=== PATIENT | male | born 1945 | race African-American/Black ===

== ENCOUNTER 2018-03-15 20:41 | Emergency (ER) | payer MEDICARE ==
[~2018-03-15] VITALS: Ht 182.9 cm; Wt 95.3 kg
[2018-03-15 20:52] VITALS: Ht 182.9 cm; Wt 95.3 kg
[2018-03-15] MEDS ORDERED: PRAVACHOL20 MG (20:53)
[2018-03-15] MEDS ORDERED: NORVASC5 MG (20:54)
[2018-03-15] MEDS ORDERED: PRINIVIL10 MG (20:54)
[2018-03-15] MEDS ORDERED: NORCO 10-325 TA1 TAB PO (22:59)
[2018-03-15] MEDS ORDERED: DOXYCYCLINE HY100 M2 PO (23:00)
[2018-03-15 23:40] VITALS: BP 112/76
== END 2018-03-15 23:40 | disposition home or self-care (01) ==
LOC: D.ER 20:41
DX: S62.631B Displaced fracture of distal phalanx of left index finger, initial encounter for open fracture (principal); W23.0XXA Caught, crushed, jammed, or pinched between moving objects, initial encounter; Y93.89 Activity, other specified; Y92.89 Other specified places as the place of occurrence of the external cause; I10 Essential (primary) hypertension; F17.200 Nicotine dependence, unspecified, uncomplicated

== ENCOUNTER → 2018-03-29 15:57 | Outpatient (CLI) | payer MEDICARE ==
[~2018-03-29 15:57] MED LIST: DOXYCYCLINE HY100 M2 PO; NORCO 10-325 TA1 TAB PO; NORVASC5 MG; PRAVACHOL20 MG; PRINIVIL10 MG
== END | disposition home or self-care (01) ==
LOC: D.LABREF 15:57
DX: S62.601A Fracture of unspecified phalanx of left index finger, initial encounter for closed fracture (principal); X58.XXXA Exposure to other specified factors, initial encounter

== ENCOUNTER 2020-11-06 09:45 | Emergency (ER) | payer OTHER ==
[~2020-11-06] VITALS: Ht 188 cm; Wt 86.4 kg
[2020-11-06 09:51] VITALS: Ht 188 cm; Wt 86.4 kg
[2020-11-06 10:10] LABS: BASOPHILS 0.9 % (0-2); EOSINOPHILS 0.4 % (0-7); HEMATOCRIT 38.8 % (42.0-54.0); LYMPHOCYTES 12.6 % (15-50); MCH 30.3 pg (26.0-34.0); MCHC 33.6 g/dL (31.0-37.0); MCV 90.4 fL (80.0-100.0); MEAN PLATELET VOLUME 6.3 fL (7.4-10.4); MONOCYTES 6.6 % (2-11); NEUTROPHILS 79.5 % (40-80); PLATELET COUNT 185 10x3/uL (130-400); RDW 14.7 % (11.5-14.5); WBC 4.1 10x3/uL (4.8-10.8)
[2020-11-06 10:20] LABS: CALC OSMOLALITY 279 mosm/kg (275-300); CALCIUM 8.3 mg/dL (8.5-10.1); CARBON DIOXIDE 29.1 mmol/L (21.0-32.0); CHLORIDE - SERUM 105 mmol/L (98-107); CREATININE - SERUM 0.9 mg/dL (0.6-1.3); GLUCOSE 127 mg/dL (74-106); POTASSIUM - SERUM 3.6 mmol/L (3.5-5.1); SODIUM 138 mmol/L (136-145); UREA NITROGEN 17 mg/dL (7-18); eGFR NON AFRICAN AMERICAN 88 mL/min (90-120)
[2020-11-06 10:25] LABS: ALBUMIN 3.3 g/dL (3.4-5.0); ALKALINE PHOSPHATASE 83 U/L (30-120); ALT (SGPT) 15 U/L (10-68); AMYLASE - SERUM 47 U/L (25-115); BILIRUBIN - TOTAL 0.35 mg/dL (0.2-1.3); TROPONIN-I < 0.017 ng/mL (0.000-0.060)
[2020-11-06 10:26] LABS: LIPASE 29 U/L (73-393)
[2020-11-06 10:57] LABS: BILIRUBIN NEGATIVE (NEGATIVE); KETONE NEGATIVE (NEGATIVE); NITRITE NEGATIVE (NEGATIVE); UROBILINOGEN NORMAL mg/dL (< 2)
[2020-11-06 11:14] LABS: BACTERIA FEW HPF (NONE SEEN); SQUAMOUS EPITHELIAL NONE SEEN HPF (0-4); WHITE CELLS - URINE NONE SEEN HPF (0-1)
[2020-11-06] MEDS ORDERED: ACETAMINOPHEN500 M1 PO (11:29)
[2020-11-06] MEDS ORDERED: CYCLOBENZAPRINE5 MG PO (11:29)
[2020-11-06] MEDS ORDERED: MACROBID100 MG PO (11:29)
[2020-11-06] MEDS ORDERED: IBUPROFEN800 MG PO (11:29)
[2020-11-06] MEDS ORDERED: CEPHALEXIN500 M1 PO (11:29)
[2020-11-06] MEDS ORDERED: DETROL LA2 MG PO (11:33)
[2020-11-06 12:24] VITALS: BP 148/75
== END 2020-11-06 12:00 | disposition home or self-care (01) ==
LOC: D.ER 09:45
PROVIDERS: Family Medicine
DX: N30.00 Acute cystitis without hematuria (principal); R10.30 Lower abdominal pain, unspecified; I10 Essential (primary) hypertension; Z72.0 Tobacco use